=== PATIENT | female | born 1950 | race American Indian/Alaskan Native ===

== ENCOUNTER 2017-02-16 11:31 | Emergency (ER) | payer SELFPAY ==
--- NOTE | 2017-02-16 12:24 | Emergency Department Report ---
Entered by JASMYN ARENAS, acting as scribe for SURENDRA MAGUIRE NP. Chief Complaint: Medical Clearance Stated Complaint: MED REFILL/HIGH BLOOD PRESSURE Time Seen by Provider: 02/16/17 11:56 - HPI History of Present Illness: Pt is a 66 y.o. female who presents to ED for evaluation of several month history of intermittent dizziness, pains in her left chest and left shoulder, and nausea. She denies dizziness at present. Pt does not report syncope. Pt states she needs a medication refill. PT states she has been out of meds for about 8 months. PT states last week she went to the health dept and she was advised to go to the ED - ROS Review of Systems: Positive for intermittent dizziness, nausea, chest pain, left shoulder pain Negative for syncope. - Exam Vital Signs: Vital Signs 02/16/17 11:51 Temperature 98.4 F Pulse Rate 89 Respiratory 22 Rate Blood Pressure 141/81 O2 Sat by Pulse 94 Oximetry MSE screening note: Focused history and physical exam performed. Due to findings the following was ordered: Ordered: CXR, EKG, labs. ED Disposition for MSE Condition: Stable This documentation as recorded by the scribe,JASMYN ARENAS,accurately reflects the service I personally performed and the decisions made by ,SURENDRA MAGUIRE , [employer].
[2017-02-16 12:46] LABS: Basophils % (Auto) 0.5 % (0.0-1.8); Eosinophils % (Auto) 3.1 % (0.0-4.3); Hematocrit 37.4 % (30.3-42.9); Hemoglobin 12.5 gm/dl (10.1-14.3); Mean Corpuscular HGB Conc 33 % (30-34); Mean Corpuscular Hemoglobin 30 pg (28-32); Mean Corpuscular Volume 91 fl (79-97); Platelet Count 212 K/mm3 (140-440); Red Blood Count 4.12 M/mm3 (3.65-5.03); Red Cell Distribution Width 12.8 % (13.2-15.2); White Blood Count 6.8 K/mm3 (4.5-11.0)
--- NOTE | 2017-02-16 13:12 | XRay Report ---
CHEST 2 VIEWS INDICATION: Chest pain. COMPARISON: 03/15/2015 FINDINGS: PA and lateral chest radiographs demonstrate stable cardiomediastinal silhouette. Clear lungs. Unremarkable bones. CONCLUSION: No acute disease, stable. Thank you for the opportunity to participate in this patient's care.
[2017-02-16 13:14] LABS: Alanine Aminotransferase 14 units/L (7-56); Albumin 4.4 g/dL (3.9-5); Albumin/Globulin Ratio 1.1 %; Alkaline Phosphatase 104 units/L (35-129); Anion Gap 20 mmol/L; Blood Urea Nitrogen 14 mg/dL (7-17); Calcium 9.1 mg/dL (8.4-10.2); Carbon Dioxide 23 mmol/L (22-30); Chloride 97.7 mmol/L (98-107); Glucose 411 mg/dL (65-100); Lipase 42 units/L (13-60); Potassium 4.3 mmol/L (3.6-5.0); Sodium 136 mmol/L (137-145); Total Protein 8.5 g/dL (6.3-8.2)
[2017-02-16 15:47] LABS: Bilirubin,Urine NEG (Negative); Blood,Urine NEG (Negative); Ketones,Urine NEG (Negative); Leukocyte Esterase,Urine NEG (Negative); Nitrite,Urine NEG (Negative); Urobilinogen,Urine < 2.0 mg/dL (<2.0)
[2017-02-16] MEDS ORDERED: CATAPRES PO ONE (20:35)
[2017-02-16] MEDS ORDERED: GLUCOPHAGE PO ONE (20:36)
--- NOTE | 2017-02-16 21:54 | Emergency Department Report ---
HPI - General Chief Complaint: Medical Clearance Time Seen by Provider: 02/16/17 11:56 - HPI HPI: 66-year-old -[place] female with a history of diabetes, high blood pressure, asthma is here today with right shoulder pain. She also has ran out of her medications. ED Past Medical Hx - Past Medical History Previous Medical History?: Yes Hx Hypertension: Yes Hx Diabetes: Yes Hx Arthritis: Yes Additional medical history: Left rotator cuff injury - Surgical History Past Surgical History?: Yes Additional Surgical History: hysterectomy. left ovary removed. hernia repair - Family History Family history: hypertension - Social History Smoking Status: Former Smoker Substance Use Type: Alcohol, Non Opiate Pain, Prescribed - Medications Home Medications: Home Medications Medication Instructions Recorded Confirmed Last Taken Type Ibuprofen 800 mg PO PRN 03/15/15 03/15/15 03/15/15 History Albuterol Sulfate [Albuterol 0.63% 0.63 mg IH TID PRN 10 Days 03/17/15 Unknown Rx NEBS] Azithromycin [Zithromax TAB] 250 mg PO QDAY #5 tablet 03/17/15 Unknown Rx predniSONE [Deltasone] 20 mg PO QDAY #16 tab 03/17/15 Unknown Rx ALBUTEROL Inhaler [ProAir HFA 1 puff IH Q6HR #1 inha 02/16/17 Unknown Rx Inhaler] Aspirin 81 mg PO QDAY #30 02/16/17 Unknown Rx Budesonide [Pulmicort Respules] 0.5 mg IH Q12HR 10 Days 02/16/17 Unknown Rx Diabeta 10 mg PO QDAY #30 02/16/17 Unknown Rx Flexeril 10 MG TAB 10 mg PO QDAY #14 02/16/17 Unknown Rx Hydrochlorothiazide [HCTZ] 12.5 mg PO QDAY #30 tablet 02/16/17 Unknown Rx Lisinopril 10 mg PO QDAY #30 02/16/17 Unknown Rx metFORMIN [Glucophage] 1,000 mg PO BID #60 tablet 02/16/17 Unknown Rx ED Review of Systems ROS: Stated complaint: MED REFILL/HIGH BLOOD PRESSURE Other details as noted in HPI Comment: All other systems reviewed and negative Gastrointestinal: as per HPI Musculoskeletal: myalgia Physical Exam - Physical Exam Vital Signs: Vital Signs 02/16/17 02/16/17 02/16/17 11:51 20:55 20:56 Temperature 98.4 F Pulse Rate 89 87 85 Respiratory 22 15 Rate Blood Pressure 141/81 Blood Pressure [Right] O2 Sat by Pulse 94 95 Oximetry 02/16/17 02/16/17 02/16/17 20:58 21:00 21:02 Temperature Pulse Rate 90 87 85 Respiratory 12 15 13 Rate Blood Pressure 147/80 133/83 133/83 Blood Pressure [Right] O2 Sat by Pulse 94 93 95 Oximetry 02/16/17 02/16/17 02/16/17 21:04 21:06 21:08 Temperature Pulse Rate 83 84 83 Respiratory 10 L 18 18 Rate Blood Pressure 133/83 133/83 133/83 Blood Pressure [Right] O2 Sat by Pulse 96 95 95 Oximetry 02/16/17 02/16/17 21:22 21:37 Temperature 98.3 F Pulse Rate 81 Respiratory 12 12 Rate Blood Pressure Blood Pressure 147/80 [Right] O2 Sat by Pulse 96 96 Oximetry Physical Exam: General Adult Exam GENERAL APPEARANCE: Well developed, well nourished, alert and cooperative, and appears to be in no acute distress. HEAD: normocephalic. EYES: PERRL, EOMI. Fundi normal, vision is grossly intact. EARS: External auditory canals and tympanic membranes clear, hearing grossly intact. NOSE: No nasal discharge. THROAT: Oral cavity and pharynx normal. No inflammation, swelling, exudate, or lesions. Teeth and gingiva in good general condition. NECK: Neck supple, non-tender without lymphadenopathy, masses or thyromegaly. CARDIAC: Normal S1 and S2. No S3, S4 or murmurs. Rhythm is regular. There is no peripheral edema, cyanosis or pallor. Extremities are warm and well perfused. Capillary refill is less than 2 seconds. No carotid bruits. LUNGS: Clear to auscultation and percussion without rales, rhonchi, wheezing or diminished breath sounds. ABDOMEN: Positive bowel sounds. Soft, nondistended, nontender. No guarding or rebound. No masses. MUSKULOSKELETAL: Adequately aligned spine. ROM intact spine and extremities. No joint erythema or tenderness. Normal muscular development. Normal gait. BACK: Examination of the spine reveals normal gait and posture, no spinal deformity, symmetry of spinal muscles, without tenderness, decreased range of motion or muscular spasm. EXTREMITIES: No significant deformity or joint abnormality. No edema. Peripheral pulses intact. No varicosities. LOWER EXTREMITY: Examination of both feet reveals all toes to be normal in size and symmetry, normal range of motion, normal sensation with distal capillary filling of less than 2 seconds without tenderness, swelling, discoloration, nodules, weakness or deformity; examination of both ankles, knees, legs, and hips reveals normal range of motion, normal sensation without tenderness, swelling, discoloration, crepitus, weakness or deformity. NEUROLOGICAL: CN II-XII intact. Strength and sensation symmetric and intact throughout. Reflexes 2+ throughout. Cerebellar testing normal. SKIN: Skin normal color, texture and turgor with no lesions or eruptions. PSYCHIATRIC: The mental examination revealed the patient was oriented to person , place, and time. The patient was able to demonstrate good judgement and reason , without hallucinations, abnormal affect or abnormal behaviors during the examination. Patient is not suicidal. ED Course Vital Signs 02/16/17 02/16/17 02/16/17 11:51 20:55 20:56 Temperature 98.4 F Pulse Rate 89 87 85 Respiratory 22 15 Rate Blood Pressure 141/81 Blood Pressure [Right] O2 Sat by Pulse 94 95 Oximetry 02/16/17 02/16/17 02/16/17 20:58 21:00 21:02 Temperature Pulse Rate 90 87 85 Respiratory 12 15 13 Rate Blood Pressure 147/80 133/83 133/83 Blood Pressure [Right] O2 Sat by Pulse 94 93 95 Oximetry 02/16/17 02/16/17 02/16/17 21:04 21:06 21:08 Temperature Pulse Rate 83 84 83 Respiratory 10 L 18 18 Rate Blood Pressure 133/83 133/83 133/83 Blood Pressure [Right] O2 Sat by Pulse 96 95 95 Oximetry 02/16/17 02/16/17 21:22 21:37 Temperature 98.3 F Pulse Rate 81 Respiratory 12 12 Rate Blood Pressure Blood Pressure 147/80 [Right] O2 Sat by Pulse 96 96 Oximetry ED Medical Decision Making - Lab Data Result diagrams: 02/16/17 12:17 02/16/17 12:17 Critical care attestation.: If time is entered above; I have spent that time in minutes in the direct care of this critically ill patient, excluding procedure time. ED Disposition Clinical Impression: Hyperglycemia, Labile hypertension Disposition: - TO HOME OR SELFCARE Is pt being admited?: No Does the pt Need Aspirin: No Condition: Stable Instructions: Hypertension (ED) Prescriptions: ALBUTEROL Inhaler [ProAir HFA Inhaler] 1 puff IH Q6HR #1 inha Aspirin 81 mg PO QDAY #30 Budesonide [Pulmicort Respules] 0.5 mg IH Q12HR 10 Days Diabeta 10 mg PO QDAY #30 Flexeril 10 MG TAB 10 mg PO QDAY #14 Hydrochlorothiazide [HCTZ] 12.5 mg PO QDAY #30 tablet Lisinopril 10 mg PO QDAY #30 metFORMIN [Glucophage] 1,000 mg PO BID #60 tablet Referrals: PRIMARY CARE, [Primary Care Provider] - 3-5 Days
[2017-02-16] MEDS ORDERED: MOTRIN PO ONE (21:57)
[2017-02-16 22:57] VITALS: BP 134/80
== END 2017-02-16 22:25 | disposition home or self-care (01) ==
LOC: ED 11:31
DX: I10 Essential (primary) hypertension (principal); E11.65 Type 2 diabetes mellitus with hyperglycemia; M19.90 Unspecified osteoarthritis, unspecified site; Z87.891 Personal history of nicotine dependence; Z79.82 Long term (current) use of aspirin
CPT/HCPCS: 36415; 71020; 80053; 81001; 82805; 82962; 83690; 84484; 85025; 93005; 93010